=== PATIENT | female | born 1940 | race Caucasian/White ===

== ENCOUNTER 2024-07-01 01:07 | Observation (INO) | payer MEDICARE, BC, SELFPAY ==
[2024-06-30 21:51] VITALS: BMI 27.1
[2024-06-30 21:52] VITALS: BP 141/79
[2024-06-30 21:55] VITALS: BP 141/79
[2024-06-30 22:00] VITALS: BP 143/91
[2024-06-30 22:14] LABS: % Basophils 0.4 % (0-2); % Eosinophils 1.8 % (0-6); % Immature Granulocytes 0.4 % (0-0.5); % Monocytes 8.1 % (1.7-9.3); % Neutrophils 64.3 % (42.2-75.2); Absolute Basophils 0.1 10^3/uL (0-0.2); Absolute Eosinophils 0.2 10^3/uL (0-0.7); Absolute Lymphocytes 2.9 10^3/uL (1.2-3.4); Absolute Monocytes 0.9 10^3/uL (0.1-0.6); Absolute Neutrophils 7.3 10^3/uL (1.4-6.5); Hematocrit 33.4 % (37.0-47.0); Mean Corp Hgb Conc. 32.9 g/dL (33.0-37.0); Mean Corpuscular Hgb 27.7 pg (27.0-31.0); Mean Corpuscular Volume 84.1 fL (81.0-99.0); Mean Platelet Volume 9.6 fL (7.4-10.4); Nucleated Red Blood Cells % 0 %; Platelet Count 269 10^3/uL (130-400); Red Blood Cell Count 3.97 10^6/uL (4.20-5.40); Red Cell Dist. Width 13.8 % (11.5-14.5); White Blood Cell Count 11.4 10^3/uL (4.8-10.8)
[2024-06-30 22:24] LABS: ALT (SGPT) 16 U/L (0-35); AST (SGOT) 22 U/L (14-36); Albumin 4.7 g/dl (3.5-5.0); Alkaline Phosphatase 120 U/L (38-126); Blood Urea Nitrogen 37 mg/dl (7-17); Calcium 9.2 mg/dl (8.4-10.2); Carbon Dioxide 22 mmol/L (22-30); Chloride 102 mmol/L (98-107); Estimated Creatinine Clearance 26 ml/min; Glucose 162 mg/dl (70-99); Potassium 3.6 mmol/L (3.5-5.1); Sodium 137 mmol/L (135-145); Total Bilirubin 0.4 mg/dl (0.2-1.3); Total Protein 7.3 g/dl (6.3-8.2); eGFR 34.36
--- NOTE | 2024-06-30 22:51 | ED.GENMED ---
History of Present Illness
General
Chief Complaint: Fainting/Passed Out
Source: patient
Exam Limitations: none
Time Seen by Provider: 06/30/24 22:32
History of Present Illness
History of Present Illness:
83-year-old female presents from [facility] with increased agitation. They found her on the ground in someone else's room and she was violent with nurses. She has been progressively getting more violent and agitated. She has a pacemaker is on
Eliquis for A-fib. She is a limited historian but denies any pain. She was vomiting. Given the agitation, medics gave her 2 mg IM Versed and she has been calm here. No other complaints
Past History
Past History
ED Past Medical History: Hypercholesterolemia and Other (This and had a history of hypertension but stopped medications by her doctor approximately 5 years)
ED Past Surgical History: None
Social History
Living: with family
Employment: Retired
Phy Exam
Physical Exam
Physical Exam:
General: Well-appearing female no acute respiratory distress
HEENT: Normocephalic no obvious scalp abrasion or hematoma
heart: Irregular rate and rhythm
Lungs: Clear no obvious wheeze
Abdomen is soft nontender
Extremities: No cyanosis
Skin is warm no rash
Course
Orders/Labs/Results
Orders:
Orders
06/30/24 22:03
Electrocardiogram (*1) Urgent
Reason for Study: Syncope
EKG- Treatment ONCE
06/30/24 22:05
Complete Blood Count/With Diff Urgent
Comprehensive Metabolic Panel Urgent
06/30/24 22:50
CT Cervical Spine W/o Iv Contr Urgent
Comment:
Reason For Exam: fall
CR Obstruct Series W/pa Chest Urgent
Comment:
Reason For Exam: vomiting
06/30/24 22:51
CT Head W/o Iv Contrast Urgent
Comment:
Reason For Exam: fall
Urinalysis Reflex To Culture Urgent
Date Specimen was Collected: 07/01/24
Time Specimen was Collected: 00:07
06/30/24 22:54
Ondansetron Injectable [Zofran] 4 mg IV NOW STA
06/30/24 23:35
0.9% Sodium Chloride 1000 ml [Nss] 1,000 ml IV BOLUS
07/01/24 00:01
COVID-19 Antigen Urgent
Source: Nasal Swab
Influenza A+B Rapid Molecular Urgent
MARGARET Source: Nasal Swab
Specimen Description:
Abnormal Lab Results
06/30/24
22:05
WBC 11.4 H 10^3/uL
(4.8-10.8)
RBC 3.97 L 10^6/uL
(4.20-5.40)
Hgb 11.0 L g/dL
(12.0-16.0)
Hct 33.4 L %
(37.0-47.0)
MCHC 32.9 L g/dL
(33.0-37.0)
Absolute Neuts (auto) 7.3 H 10^3/uL
(1.4-6.5)
Absolute Monos (auto) 0.9 H 10^3/uL
(0.1-0.6)
BUN 37 H mg/dl
(7-17)
Creatinine 1.5 H mg/dL
(0.6-1.0)
Glucose 162 H mg/dl
(70-99)
06/30/24 22:05
06/30/24 22:05
Vital Signs
Initial and Last Documented VS:
Initial Vital Signs
BP Pulse Ox
141/79 92
06/30/24 21:52 06/30/24 21:52
Last Documented Vital Signs
Temp Pulse Resp BP Pulse Ox
97.8 F 97 15 129/85 95
06/30/24 21:55 06/30/24 23:00 06/30/24 23:00 06/30/24 23:00 06/30/24 23:00
MDM/Problems Addressed
Differential Diagnosis Includes:
Fall unclear etiology weakness vomiting increased agitation. Question infectious source we will check urinalysis. She is anticoagulated and fell. CT of the head and cervical spine pending. Zofran ordered for nausea. Obstruction series ordered
*Critical Care Note
Total Time (30-74mins, 75-104mins- exclusive of procedures): Not Applicable
Update Note
Update Note:
Echocardiogram done a year ago shows ejection fraction of 60 to 65%. Patient does have rapid A-fib here. Has been vomiting creatinine is bumped at 1.5. Will order fluids CT head and cervical spine showed no obvious acute finding. Patient quite
weak. Discussed with emergency room attending. Will keep in hospital for hydration and further treatment.
ED Attending Note
-
Portions of this chart may have been created with voice recognition software.� Occasional wrong word or��sound alike� substitutions may have occurred due to the inherent limitations of voice recognition software.
Discharge Plan
Departure
Patient Disposition: Admit
Date of Disposition: 07/01/24
Time of Disposition: 00:18
Presentation/result/management discussed w/ accepting MD/DO: Hospitalist
Discharge Problem:
Altered mental status
Prescriptions:
No Action
donepezil [Aricept] 10 mg Tablet
10 mg PO QPM
meclizine 12.5 mg Tablet
12.5 mg PO [id number] PRN (Reason: Dizziness)
levothyroxine 100 mcg Tablet
100 mcg PO DAILY
pravastatin 20 mg Tablet
20 mg PO DAILY
losartan 100 mg Tablet
100 mg PO DAILY
sertraline 50 mg Tablet
75 mg PO DAILY
Eliquis 5 mg Tablet
5 mg PO BID Qty: 0 0RF
quetiapine [Seroquel] 25 mg Tablet
12.5 mg PO BID
sennosides [senna] 8.6 mg Tablet
17.2 mg PO HSPRN PRN (Reason: constipation)
acetaminophen [Tylenol] 325 mg Tablet
650 mg PO Q4HPRN PRN (Reason: mild pain)
potassium chloride 20 mEq Packet
20 meq PO DAILY
alprazolam [Xanax] 0.25 mg Tablet
0.25 mg PO [id number] PRN (Reason: agitation)
metoprolol tartrate 50 mg Tablet
50 mg PO BID
hydrochlorothiazide 12.5 mg Capsule
12.5 mg PO DAILY
docusate sodium [Colace] 100 mg Capsule
100 mg PO [id number] PRN (Reason: constipation)
buspirone 7.5 mg Tablet
7.5 mg PO BID
lansoprazole [Prevacid SoluTab] 15 mg Tablet,Disintegrat, Delay Rel
15 mg PO DAILY
memantine [Namenda] 10 mg Tablet
10 mg PO BID
aripiprazole [Abilify] 2 mg Tablet
2 mg PO BID
Referrals:
Anthony Bazan MD [Family Provider] -
Interventions
Interventions:
*Risk Screen - Suicide Last Done: 06/30/24 21:55
*General Assessment Last Done: 06/30/24 21:55
*Neglect/Abuse Screening Last Done: 06/30/24 21:55
*ED COVID-19 Vaccine History Last Done: 06/30/24 22:09
ED- Cardiac Assessment Last Done: 06/30/24 22:10
ED- Neurological Assessment Last Done: 06/30/24 22:10
Discharge Date and Time
Print Language: MAURITANIAN
[2024-06-30] MEDS: ZOFRAN 4 MG IV (22:58)
[2024-06-30 23:00] VITALS: BP 129/85
[2024-06-30] MEDS: NSS 1000 IV (23:54)
[2024-07-01] VITALS (7 sets, daily range): BP systolic 105–134; BP diastolic 46–74; BMI 26.6
[2024-07-01 00:33] LABS: Urine Albumin Negative (Neg - Trace); Urine Bilirubin Negative (Negative); Urine Character Clear (Clear); Urine Color Yellow; Urine Glucose Negative (Negative); Urine Ketone Negative (Negative); Urine Leukocyte Negative (Negative); Urine Nitrite Negative (Negative); Urine Occult Blood Negative (Negative); Urine Specific Gravity 1.015 (<1.030); Urine Urobilinogen Negative (Neg - 1+)
[2024-07-01 00:50] LABS: COVID-19 Antigen Negative (Negative)
--- NOTE | 2024-07-01 01:08 | HPS.HSE ---
Family Physician
-
Family Physician: Anthony aBzan
Chief Complaint
-
Confusion / Agitation
History of Present Illness
Patient is an 83y F with PMH significant for dementia and hypertension who presents to ED for evaluation after being found on the floor in another resident's room at [facility]. History obtained from family at the bedside, ID record and ED
reports. Patient is resting comfortably at present, somewhat sedated, and has no complaints.
Daughter states that patient has had issues with escalating behavioral abnormalities, agitation, etc over the past several weeks / months.
She has had recent medication changes including addition of buspirone (2 weeks ago) and Seroquel (last week) in an attempt to improve her agitation / combativeness.
Daughter also states that patient has been known to wander into other residents' rooms in the past as well.
This evening, she was found asleep on the floor of another resident's room.
When roused by staff, patient became agitated and combative. 911 was called and patient was given a dose of Versed by EMS and brought to the ED for evaluation.
Patient reportedly had an episode of emesis at the ID and has been 'spitting up mucus' here in the ED.
Medical History
Past Medical History
Past Medical History: Reports Other
Additional Past Medical History:
Hypertension
Atrial Fibrillation
Dementia
Hypothyroidism
Past Surgical History: Reports Other
Additional Past Surgical History:
PPM Placement
Social History
Tobacco: Non-smoker
Alcohol: None
Drug: None
Living: Alf
Family History
Family History: Not pertinent
Allergies / Home Medications
Allergies reflects when Allergies were last updated in [facility].
Home Medications with original date entered in [facility]
Allergy/Medication List:
Allergies
Allergy/AdvReac Type Severity Reaction Status Date / Time
celecoxib [From Celebrex] Allergy Hives Verified 03/05/10 14:46
loratadine Allergy Unknown Verified 05/02/23 06:58
lorazepam [From Ativan] Allergy sick to Verified 05/02/20 09:35
stomach
Home Medications
donepezil 10 mg tablet (Aricept) 10 mg PO QPM Neurological Condition 05/02/23
levothyroxine 100 mcg tablet 100 mcg PO DAILY Thyroid 05/02/23
losartan 100 mg tablet 100 mg PO DAILY Blood Pressure 05/02/23
meclizine 12.5 mg tablet 12.5 mg PO [id number] PRN Dizziness 05/02/23
pravastatin 20 mg tablet 20 mg PO DAILY High Cholesterol 05/02/23
sertraline 50 mg tablet 75 mg PO DAILY Mental Health/Anxiety 05/02/23
apixaban 5 mg tablet (Eliquis) 5 mg PO BID #0 tabs 05/06/23
acetaminophen 325 mg tablet (Tylenol) 650 mg PO Q4HPRN PRN mild pain 06/30/24
alprazolam 0.25 mg tablet (Xanax) 0.25 mg PO [id number] PRN agitation 06/30/24
aripiprazole 2 mg tablet (Abilify) 2 mg PO BID 06/30/24
buspirone 7.5 mg tablet 7.5 mg PO BID 06/30/24
docusate sodium 100 mg capsule (Colace) 100 mg PO [id number] PRN constipation 06/30/24
hydrochlorothiazide 12.5 mg capsule 12.5 mg PO DAILY 06/30/24
lansoprazole 15 mg delayed release,disintegrating tablet (Prevacid SoluTab) 15 mg PO DAILY 06/30/24
memantine 10 mg tablet 10 mg PO BID 06/30/24
metoprolol tartrate 50 mg tablet 50 mg PO BID 06/30/24
potassium chloride 20 mEq oral packet 20 meq PO DAILY 06/30/24
quetiapine 25 mg tablet (Seroquel) 12.5 mg PO BID 06/30/24
sennosides 8.6 mg tablet (senna) 17.2 mg PO HSPRN PRN constipation 06/30/24
Review of Systems
-
History Source: Patient and Family
A 12 point ROS was completed and negative except as noted: Yes
Constitutional: Denies Fever or Chills
Respiratory: Reports Cough; Denies Trouble Breathing
Cardiac: Denies Chest Pain or Palpitations
Abdomen/GI: Reports Nausea and Vomiting; Denies Abdominal Pain or Diarrhea
: Denies Dysuria, Frequency or Flank Pain
Musculoskeletal: Denies Joint Pain or Edema
Neurological: Denies Dizzy or Headache
Psych: Reports Dementia
Physical Exam
Vital Signs
Vital Signs
Temp Pulse Resp BP Pulse Ox
97.8 F 97 15 128/74 98
06/30/24 21:55 06/30/24 23:00 06/30/24 23:00 07/01/24 00:00 07/01/24 00:30
Physical Exam
General: Other (83y F in no acute distress.)
HEENT: Moist mucous membranes and PERRLA
Respiratory: Other (Few rales at bases. Poor inspiratory effort.)
Cardiac: S1/S2 and Regular Rhythm; No Murmur
GI: Soft, Non Tender, Non Distended and Normal Bowel Sounds
Musculoskeletal: No Clubbing, No Cyanosis and No Edema
Neuro: Awake; No Oriented
Psych: Apparent Dementia
Laboratory Results
-
06/30/24 22:05
06/30/24 22:05
Laboratory Results
Total Bilirubin 0.4 mg/dl (0.2-1.3) 06/30/24 22:05
AST 22 U/L (14-36) 06/30/24 22:05
ALT 16 U/L (0-35) 06/30/24 22:05
Alkaline Phosphatase 120 U/L (38-126) 06/30/24 22:05
Impression/Plan
-
A/P: Patient is an 83y F with PMH significant for dementia and hypertension who presents [facility] ED for evaluation after being found down in a neighbor's room this evening.
Senile Dementia with Behavioral Disturbance
Found Down
- Observe overnight for further evaluation and treatment.
- No witnessed fall. No evident injury on exam. CT imaging unremarkable.
- Neither wandering nor agitation is a new / acute issue according to family.
- No evidence of active infection with normal UA, CXR, flu / COVID assays.
- Continue current psychotropic medications without changes.
- Monitor overnight for any new symptoms / complaints.
- Daughter notes that patient typically becomes agitated in the AM upon waking.
- Continue PRN alprazolam as needed.
- PT / OT / CM evaluations in the AM.
NICK
- Suspect mild pre-renal etiology / volume related.
- IVFs overnight and repeat labs in AM.
- Discontinue HCTZ (and potassium).
Paroxysmal Atrial Fibrillation
- Stable. Doubt any significant arrhythmia, but monitor on tele overnight.
- Continue current meds including metoprolol and Eliquis.
Benign Hypertension
- Stable. Hold HCTZ and continue other meds with holding parameters.
Hypothyroidism
- Stable. Continue T4 replacement.
DVT Prophylaxis: On Eliquis
Code Status: DNR
[2024-07-01] MEDS: LR 1000 IV (03:01)
--- NOTE | 2024-07-01 04:17 | PTCARENOTE ---
07/01 pt arrived from ED to 2N via stretcher. Pt slid to bed. SpO2 at 89 on RA. 2L applied per order. Covering CONTACT CENTER SPECIALIST notified. All other vss. Drowsy, oriented to self only. Unable to obtain hx from patient. Pt placed on tele. Paced Afib. LR
administered. Pt on bedalarm. callbell within reach.
[2024-07-01 07:57] LABS: Hematocrit 33.3 % (37.0-47.0); Hemoglobin 10.7 g/dL (12.0-16.0); Mean Corp Hgb Conc. 32.1 g/dL (33.0-37.0); Mean Corpuscular Hgb 27.9 pg (27.0-31.0); Mean Corpuscular Volume 86.7 fL (81.0-99.0); Mean Platelet Volume 9.9 fL (7.4-10.4); Platelet Count 243 10^3/uL (130-400); Red Blood Cell Count 3.84 10^6/uL (4.20-5.40); Red Cell Dist. Width 13.8 % (11.5-14.5); White Blood Cell Count 12.9 10^3/uL (4.8-10.8)
[2024-07-01 08:09] LABS: Blood Urea Nitrogen 30 mg/dl (7-17); Calcium 8.6 mg/dl (8.4-10.2); Carbon Dioxide 25 mmol/L (22-30); Chloride 105 mmol/L (98-107); Estimated Creatinine Clearance 32 ml/min; Glucose 116 mg/dl (70-99); Potassium 4.4 mmol/L (3.5-5.1); Sodium 140 mmol/L (135-145); eGFR 44.91
[2024-07-01 08:33] LABS: TSH 3.15 uIU/ml (0.47-4.68)
--- NOTE | 2024-07-01 08:36 | W.PN.HOSP.TC ---
Today's Communication/Plan
-
stop IVF as mild b/l LE edema
encourage oral hydration
follow AM labs
Assessment / Plan
Assessment / Plan
83yo F with PMHX of Afib, HLD, Alzheimer dementia, GERD, hypothyroidism brought from facility with agitation. Patient has advanced dementia on baseline. On admission found NICK
A/P:
#Alzheimer dementia with behavioral disturbances
cont home meds
Psych consult for adjustment
#NICK
2/2 HCTZ
stop diuretic
encourage oral hydration
follow Cr
#Leukocytosis
#Vomiting reported on admission
LFT WNL - follow
Check lipase
minimal leuk elevation, patient afebrile
as symptoms improved - monitor
Chest XR without acute findings
UA without signs of UTI
COVID-19 and Influenza PCR neg
monitor
#Afib, paroxysmal
#SSS s/p PPM
#Hypothyroidism
#HLD
#Essential HTN
#Fatty liver disease
#Cholelithiasis
cont home meds
Check TSH
DVT ppx cont Eliquis
DNR/DNI
I have spent at least 58min reviewing chart, test results, communication with consultantants and providing direct patient care
Anticipated Discharge: Within 24 hours
Subjective/Interval History
-
Date of Service: July 01, 2024
Objective Data
-
Labs:
Laboratory Results
06/30/24 07/01/24
22:05 07:31
WBC 11.4 H 12.9 H
Hgb 11.0 L 10.7 L
Hct 33.4 L 33.3 L
Plt Count 269 243
Sodium 137 140
Potassium 3.6 4.4
Chloride 102 105
Carbon Dioxide 22 25
BUN 37 H 30 H
Creatinine 1.5 H 1.2 H
Glucose 162 H 116 H
Calcium 9.2 8.6
Total Bilirubin 0.4
AST 22
ALT 16
Alkaline Phosphatase 120
Vital Signs:
Vital Signs
Temp Pulse Resp BP Pulse Ox
98.3 F 67 16 131/73 98
07/01/24 07:37 07/01/24 07:37 07/01/24 07:37 07/01/24 07:37 07/01/24 07:37
Review of Systems
-
Unable to obtain full review of systems at this time due to: Dementia
History Source: Patient
Physical Exam
-
General: No Apparent Distress
HEENT: Normocephalic
Respiratory: Clear to Auscultation
Cardiac: Regular Rhythm; Negative Murmur
GI: Soft, Nontender and Nondistended
Musculoskeletal: No Clubbing, No Cyanosis, Edema, Right Lower Extrem and Edema, Left Lower Extrem
Skin: Warm
Neuro: Awake, Alert, Oriented and No Motor Deficits
Psych: Calm and Apparent Dementia
[2024-07-01] MEDS: ABILIFY 2 MG PO ×2 (08:56→08:57)
[2024-07-01] MEDS: ZOLOFT 75 MG PO (08:56)
[2024-07-01] MEDS: MIRALAX 17 GRAMS PO (08:57)
[2024-07-01] MEDS: COLACE 100 MG PO (08:57)
[2024-07-01] MEDS: SEROQUEL 12.5 MG PO (08:58)
[2024-07-01] MEDS: SYNTHROID 100 MCG PO (08:58)
[2024-07-01] MEDS: ELIQUIS 5 MG PO (08:58)
[2024-07-01] MEDS: BUSPAR 7.5 MG PO (08:59)
[2024-07-01] MEDS: NAMENDA 10 MG PO (08:59)
[2024-07-01] MEDS: PRAVACHOL 20 MG PO (09:00)
[2024-07-01] MEDS: LOPRESSOR 50 MG PO (09:04)
[2024-07-01] MEDS: COZAAR 100 MG PO (09:05)
[2024-07-01 09:07] LABS: Lipase 70 U/L (23-300)
[2024-07-01] MEDS: XANAX 0.25 MG PO (09:41)
--- NOTE | 2024-07-01 12:53 | W.DCSUMMARY ---
Addendum entered and electronically signed by Damion Champion MD 07/01/24 13:02:
Afib with RVR on admission - resolved
most likely 2/2 dehydration with NICK and diuretics. HR well controlled at the time of D/C
Original Note:
Discharge Summary
Discharge Data
Date of Admission: 07/01/24
Date of Discharge: 07/01/24
-
Pending Results: No
Hospital Course
83yo F with PMHX of Afib, HLD, Alzheimer dementia, GERD, hypothyroidism brought from facility with agitation. Patient has advanced dementia on baseline. On admission found NICK that started to resolve with IVF and most likely occurred with HCTZ that
advised to be stopped. BP remained in acceptable range. Head CT and cervical CT as well as XR chest/abd without acute findings. Daughter requested d/c back to [facility] care facility as patient becoming more agitated in unfamiliar environment. Patient
followed by psychiatry and PCP in the facility and will have follow up BMP upon d/c. Since no additional findings - medically stable to be d/c.
I have spent at least 38min reviewing chart, test results, communication with consultants and providing direct patient care
Patient was managed for:
#Alzheimer dementia with behavioral disturbances
#NICK
#Leukocytosis
#Vomiting reported on admission
#Afib, paroxysmal
#SSS s/p PPM
#Hypothyroidism
#HLD
#Essential HTN
#Fatty liver disease
#Cholelithiasis
Discharge Plan
-
Patient Disposition: Other
Discharge Diagnosis/Procedures: memory care
Diet: Low Sodium
Activity: As tolerated
Driving Restrictions: As prior to admission
Blood Work: BMP in 3-5 days
Referrals:
Anthony Bazan MD [Family Provider] -
Prescriptions:
Continued
donepezil [Aricept] 10 mg Tablet
10 mg PO QPM
meclizine 12.5 mg Tablet
12.5 mg PO [id number] PRN (Reason: Dizziness)
levothyroxine 100 mcg Tablet
100 mcg PO DAILY
pravastatin 20 mg Tablet
20 mg PO DAILY
losartan 100 mg Tablet
100 mg PO DAILY
sertraline 50 mg Tablet
75 mg PO DAILY
Eliquis 5 mg Tablet
5 mg PO BID Qty: 0 0RF
quetiapine [Seroquel] 25 mg Tablet
12.5 mg PO BID
sennosides [senna] 8.6 mg Tablet
17.2 mg PO HSPRN PRN (Reason: constipation)
acetaminophen [Tylenol] 325 mg Tablet
650 mg PO Q4HPRN PRN (Reason: mild pain)
potassium chloride 20 mEq Packet
20 meq PO DAILY
alprazolam [Xanax] 0.25 mg Tablet
0.25 mg PO [id number] PRN (Reason: agitation)
metoprolol tartrate 50 mg Tablet
50 mg PO BID
docusate sodium [Colace] 100 mg Capsule
100 mg PO [id number] PRN (Reason: constipation)
buspirone 7.5 mg Tablet
7.5 mg PO BID
lansoprazole [Prevacid SoluTab] 15 mg Tablet,Disintegrat, Delay Rel
15 mg PO DAILY
memantine 10 mg Tablet
10 mg PO BID
aripiprazole [Abilify] 2 mg Tablet
2 mg PO BID
Discontinued
hydrochlorothiazide 12.5 mg Capsule
12.5 mg PO DAILY
Discharge Orders:
Discharge Patient (As Directed); Ordered 07/01/24
Ordered By: Damion Champion
Discharge Date and Time
Print Language: [id number]
--- NOTE | 2024-07-01 13:28 | CM ---
Addendum entered by Kiera De Luna 07/01/24 16:04:
Consult completed - spoke with Monika at - pt can return
Daughter to transport
Plan - return to [facility]
R - [phone]
F - [phone]
Addendum entered by Kiera De Luna 07/01/24 15:09:
Spoke with TOÑO Christine and pts daughter - requesting psych eval to be completed prior to discharge per daughter
Psych aware of consult
Spoke with Elizabeth at - [phone]. Confirmed nsg laboratory animal facility supervisor requested psych eval prior to d/c. Requesting consult be faxed to [phone] for laboratory animal facility supervisor to review prior to accepting pt back to unit
TOÑO Christine updated via TT
Original Note:
Met with pt and her daughter at bedside. Completed initial assessment
Pt is a LTC pt at [facility] in the Memory unit per her daughter
At baseline requires assist with ADL's, ambulates with rolling walker
Daughter would like pt to return to when medically stable
Updates sent in Care port
PCP - Anthony Bazan
Pharm - [facility]
Reviewed [facility] with daughter
Called , spoke with Elizabeth [phone]. Updated - pt medically ready for discharge
Per Elizabeth - will contact her laboratory animal facility supervisor and return call
Plan - return to memory care
--- NOTE | 2024-07-01 15:22 | CON.MD ---
Consultation - Medical
-
Asked to see this 83 y/o resident of Memory Care at [facility] who was admitted yesterday having been found sleeping on the floor of another resident with possibly vomitus on her lips. PMH of Afib, Alzheimers, GERD, hypothyroidism. She
reportedly has been more agitated and aggressive and the psychiatric process improvement consultant at [facility] has been making medications changes: Seroquel 12.5 mg. BID increased to 25 mg. BID was added as well as buspirone 7.5 mg. BID. It is unclear if the
Abilify 2 mg. BID is intented to be stopped in the future. She is also taking Aricept 10 mg. and Namenda 10 mg. BID and Zoloft 75 mg. Zoloft, per daughter, was started when dementia began and seemed helpful.
[facility] requested a psychiatric evaluation prior to her return. Has been medically stabiized by discontinuing HCTZ due to NICK. BUN has dropped from 37 to 30; Creat has dropped from 1.5 to 1.2. Gluc today was 116. Ca normal at 9.6, Hgb low at
10.7, WBC elevated at 12.9 with normal U/A. CT of head shows changes consistent with chronic small vessel ischemic disease -- no acute findings.
She was very agitated this morning and responded to Xanax 0.25 mg. Reportedly gets nausea from Ativan.
Diagnosis:
Dementia, Alzheimer's Type, with behavioral disturbance
Plan: Return to [facility] Care and her usual psychiatric provider. Seroquel is a reasonable choice which may also help appetite; I assume plan will be to stop Abilify once Seroquel stabilized. Buspirone certainly can be useful
off-label for aggression as can the SSRI's such as Zoloft. Perhaps some mild infection (as reflected in elevated WBC) or effects of dehydration were contributing to her declining mental status in addition to progression of dementia.
== END 2024-07-01 16:30 ==
LOC: 2 NORTH 01:07
PROVIDERS: Physician Assistant; ADMITTING PHYSICIAN Hospitalist; ATTENDING PHYSICIAN Internal Medicine; CONSULT PHYSICIAN Psychiatry & Neurology Psychiatry; EMERGENCY PHYSICIAN Emergency Medicine; FAMILY PHYSICIAN Internal Medicine
DX: G30.9 Alzheimer's disease, unspecified (principal); R55 Syncope and collapse; I48.0 Paroxysmal atrial fibrillation; F02.C18 Dementia in other diseases classified elsewhere, severe, with other behavioral disturbance; F02.C11 Dementia in other diseases classified elsewhere, severe, with agitation; E78.00 Pure hypercholesterolemia, unspecified; D72.829 Elevated white blood cell count, unspecified; I10 Essential (primary) hypertension; N17.9 Acute kidney failure, unspecified; R11.2 Nausea with vomiting, unspecified; R53.1 Weakness; R41.0 Disorientation, unspecified; E03.9 Hypothyroidism, unspecified; M47.812 Spondylosis without myelopathy or radiculopathy, cervical region; I47.19 Other supraventricular tachycardia; K21.9 Gastro-esophageal reflux disease without esophagitis; K76.0 Fatty (change of) liver, not elsewhere classified; K80.20 Calculus of gallbladder without cholecystitis without obstruction; Z95.0 Presence of cardiac pacemaker; Z79.01 Long term (current) use of anticoagulants; Z79.890 Hormone replacement therapy; Z88.6 Allergy status to analgesic agent; Z88.8 Allergy status to other drugs, medicaments and biological substances; Z66 Do not resuscitate; Z11.52 Encounter for screening for COVID-19
CPT/HCPCS: 70450; 72125; 74022; 80048; 80053; 81003; 83690; 84443; 85025; 85027; 87070; 87502; 87811; 93005; 96374; 96375; 97163; 97167; 99285; G0378

== ENCOUNTER 2024-10-05 23:12 | Emergency (ER) | payer MEDICARE, OTHER, SELFPAY ==
[2024-10-05 23:21] VITALS: BP 92/46
[2024-10-05 23:22] VITALS: BP 92/46
[2024-10-05] MEDS: NSS 1000 IV (23:29)
--- NOTE | 2024-10-06 00:40 | EDRN ---
Enema performed, patient had golf ball size large stool come out, then gave patient a break as she was getting upset trying to poop.
--- NOTE | 2024-10-06 02:57 | ED.GENMED ---
History of Present Illness
General
Chief Complaint: Abdominal Symptoms
Source: patient
Time Seen by Provider: 10/06/24 00:11
History of Present Illness
History of Present Illness:
Note:
CHIEF COMPLAINT(S)
Constipation leading to vomiting, with associated sweating and pallor.
HISTORY OF PRESENT ILLNESS
A 84-year-old female on hospice care, residing at a care facility, presented with significant constipation that has led to multiple episodes of vomiting. The facility staff reported associated symptoms of sweating and pallor. The hospice nurse
indicated no rectal or enema interventions were available until morning. The patient received nausea medication from EMS during transport. Upon examination, she was calm but appeared to be uncomfortable and in some pain. There was a recent change in
her medications approximately a week ago, and she is not currently on narcotic pain medications such as morphine. She has had difficulty with bowel movements despite spending considerable time on the toilet, and the facility was unable to alleviate
the constipation. Discussion involved potential treatment strategies to address her impacted stool, noting that the stool is distributed throughout her colon. Options considered included a suppository or enema, though the latters effectiveness may
be limited due to physical factors such as the patients ability to hold and her incontinence. The patient�s diet was noted to include limited intake, with a preference for peanut butter and jelly sandwiches and she drinks to some extent. A recent
adjustment in medication had left the patient overly sedated, complicating her ability to assist with bodily functions such as standing or holding a position on the toilet.
SOCIAL DETERMINANTS AFFECTING HEALTH
The patient is on hospice, indicating limitations in terms of care and treatment objectives focused on comfort.
PHYSICAL EXAM
- The patient was calm but appeared uncomfortable and in some pain.
- Abdominal examination revealed a tense and distended belly, suggesting impaction.
Nursing notes reviewed and vital signs reviewed.
PLAN
- Consider administration of a suppository to initiate bowel evacuation, followed by further enema intervention as needed under better conditions.
- Ensure supportive and comfortable measures are in place given the current hospice context, with emphasis on avoiding unnecessary hospital visits unless absolutely necessary.
- Engage hospice team for further follow-up and management to ensure patient comfort and mitigate suffering.
DIFFERENTIAL DIAGNOSIS
The Differential Diagnosis includes, in no particular order and is not limited to:
1. Fecal impaction
2. Bowel obstruction
3. Gastroenteritis
4. Food intolerance
5. Medication side effects
6. Dehydration-induced symptoms
7. Electrolyte imbalance
8. End-of-life physiological changes
9. Stress-induced hyperemesis
10. Autonomic instability due to advanced disease.
Disposition:
SUMMARY OF ENCOUNTER
The patient, a 84-year-old female on hospice care, was seen due to constipation leading to vomiting, sweating, and pallor. She was calm but appeared uncomfortable and in some pain. Following a change in medication, she experienced significant
sedation, complicating bowel movements. The patient had a considerable amount of stool evacuated and appeared to have gained some relief.
PLAN
Refer back to hospice nursing for further management including laxatives and possibly suppositories or repeat enemas. Focus on maintaining comfort given the hospice context.
MEDICAL DECISION MAKING
1. Number & Complexity of Problems: Chronic constipation complicating end-of-life care, with issues of excessive sedation affecting bowel management.
2. Risk: Social determinants of health include hospice status, emphasizing comfort over invasive interventions.
PATHOLOGIES TO CONSIDER
- Fecal impaction
- Bowel obstruction
- Medication side effects
- End-of-life physiological changes
Past History
Past History
ED Past Medical History: Hypercholesterolemia and Other (This and had a history of hypertension but stopped medications by her doctor approximately 5 years)
ED Past Surgical History: None
Social History
Living: with family
Employment: Retired
Phy Exam
Physical Exam
Physical Exam:
.
Course
Orders/Labs/Results
Orders:
Orders
10/05/24 23:28
0.9% Sodium Chloride 1000 ml [Nss] 1,000 ml IV BOLUS
10/06/24 00:01
CR Abdomen - 1 View Urgent
Reason For Exam: constipation
10/06/24 00:40
Enema- Treatment ONCE
Type: Milk of Molasses
Vital Signs
Initial and Last Documented VS:
Initial Vital Signs
Temp Pulse Resp BP Pulse Ox
98.0 F 98 18 92/46 97
10/05/24 23:22 10/05/24 23:22 10/05/24 23:22 10/05/24 23:22 10/05/24 23:22
Last Documented Vital Signs
Temp Pulse Resp BP Pulse Ox
98.0 F 98 18 92/46 97
10/05/24 23:22 10/05/24 23:22 10/05/24 23:22 10/05/24 23:22 10/05/24 23:22
*Pulse Oximetry
SaO2: 97
Oxygen Mode of Delivery: Room air
Patient hypoxic: no
*Critical Care Note
Total Time (30-74mins, 75-104mins- exclusive of procedures): Not Applicable
ED Attending Note
-
Portions of this chart may have been created with voice recognition software.� Occasional wrong word or��sound alike� substitutions may have occurred due to the inherent limitations of voice recognition software.
Discharge Plan
Departure
Patient Disposition: Home (Routine Discharge)
Date of Disposition: 10/06/24
Time of Disposition: 02:57
Patient with high blood pressure during this ER visit?: No
Discharge Problem:
Constipation
Instructions: Constipation, Adult (DC)
Prescriptions:
No Action
donepezil [Aricept] 10 mg Tablet
10 mg PO QPM
meclizine 12.5 mg Tablet
12.5 mg PO [id number] PRN (Reason: Dizziness)
levothyroxine 100 mcg Tablet
100 mcg PO DAILY
pravastatin 20 mg Tablet
20 mg PO DAILY
losartan 100 mg Tablet
100 mg PO DAILY
sertraline 50 mg Tablet
75 mg PO DAILY
Eliquis 5 mg Tablet
5 mg PO BID Qty: 0 0RF
quetiapine [Seroquel] 25 mg Tablet
12.5 mg PO BID
sennosides [senna] 8.6 mg Tablet
17.2 mg PO HSPRN PRN (Reason: constipation)
acetaminophen [Tylenol] 325 mg Tablet
650 mg PO Q4HPRN PRN (Reason: mild pain)
potassium chloride 20 mEq Packet
20 meq PO DAILY
alprazolam [Xanax] 0.25 mg Tablet
0.25 mg PO [id number] PRN (Reason: agitation)
metoprolol tartrate 50 mg Tablet
50 mg PO BID
docusate sodium [Colace] 100 mg Capsule
100 mg PO [id number] PRN (Reason: constipation)
buspirone 7.5 mg Tablet
7.5 mg PO BID
lansoprazole [Prevacid SoluTab] 15 mg Tablet,Disintegrat, Delay Rel
15 mg PO DAILY
memantine 10 mg Tablet
10 mg PO BID
aripiprazole [Abilify] 2 mg Tablet
2 mg PO BID
Referrals:
Anthony Bazan MD [Family Provider, Internal Medicine]
Activity Restrictions/Additional Instructions:
Please follow-up with your hospice nurse to consider further laxatives, repeat enema or suppositories. Return for any concerns
Interventions
Interventions:
*Risk Screen - Suicide Last Done: 10/05/24 23:22
*General Assessment Last Done: 10/05/24 23:22
*Neglect/Abuse Screening Last Done: 10/05/24 23:22
*ED COVID-19 Vaccine History Last Done: 10/05/24 23:22
ET-[id number]-Urhnvmsrby Assessment Last Done: 10/05/24 23:43
Discharge Date and Time
Print Language: GEORGIAN
--- NOTE | 2024-10-06 03:00 | EDRN ---
With daughter's assistance, got patient up to bedside commode and patient was able to pass a large baseball size hard formed stool, informed Dr. Sparks, who spoke with daughter, both comfortable having patient go home. Patient back in bed sleeping
at this time.
[2024-10-06 03:24] VITALS: BP 104/49
== END 2024-10-06 03:58 | disposition home or self-care (01) ==
LOC: EMR 23:12
PROVIDERS: EMERGENCY PHYSICIAN Emergency Medicine; FAMILY PHYSICIAN Internal Medicine
DX: K59.00 Constipation, unspecified (principal); R11.2 Nausea with vomiting, unspecified; E78.00 Pure hypercholesterolemia, unspecified; I10 Essential (primary) hypertension; Z51.5 Encounter for palliative care
CPT/HCPCS: 99283; 96360; 74018